=== PATIENT | male | born 1935 | race Caucasian/White ===

== ENCOUNTER 2024-07-02 14:07 | Inpatient (IN) | payer MEDICARE ==
[~2024-07-02] VITALS: Ht 177.8 cm; Wt 72.1 kg
[2024-07-02 14:07] VITALS: BP_SYST 154; PULSE 202; RESP 40; TEMP 97; O2SAT 99
[2024-07-02] MEDS ORDERED: AMIODARONE HCL 150 MG/3ML VIAL ONE (14:18)
[2024-07-02] MEDS: AMIODARONE HCL 150 MG/3ML VIAL IVP ONE (15:10)
[2024-07-02 15:19] LABS: HEMATOCRIT 45.9 % (36-54); HEMOGLOBIN 14.6 g/dL (14.0-18.0); MEAN CORPUSCULAR HEMOGLOBIN 29 pg (27-31); MEAN CORPUSCULAR HGB CONC 32 % (32-36); MEAN CORPUSCULAR VOLUME 92 fL (79.0-98.0); RED CELL DISTRIBUTION WIDTH 22.6 % (9.0-15.0); WHITE BLOOD COUNT (AUTO) 18.9 K/uL (4.8-10.8)
[2024-07-02 15:38] LABS: ALANINE AMINOTRANSFERASE 77 U/L (12-78); ALBUMIN 3.4 g/dL (3.4-4.8); ANION GAP 15 (5-15); ASPARTATE AMINOTRANSFERASE 32 U/L (10-37); CALCIUM 8.5 mg/dL (8.4-11.0); CARBON DIOXIDE 19 mmol/L (23-29); CHLORIDE 110 mmol/L (98-107); CREATININE 1.82 mg/dL (0.55-1.30); GLUCOSE 211 mg/dL (74-106); POTASSIUM 5.4 mmol/L (3.5-5.1); SODIUM SERUM 144 mmol/L (136-145); TOTAL BILIRUBIN 0.7 mg/dL (0.0-1.0); UREA NITROGEN, BLOOD 39 mg/dL (8-21)
[2024-07-02 15:40] LABS: BILIRUBIN,DIRECT 0.2 mg/dL (0.0-0.3)
[2024-07-02 15:45] LABS: PLATELET COUNT (AUTO) 35 K/uL (130-430)
[2024-07-02] MEDS: AMIODARONE HCL 150 MG in D5W 97 ML IV ONE (15:59)
[2024-07-02 16:12] LABS: BAND % (MANUAL) 13 % (0-6); BASOPHILS % (MANUAL) 0 % (0-2); EOSINOPHILS % (MANUAL) 0 % (0-7); LYMPHOCYTES % (MANUAL) 13 % (20-46); METAMYELOCYTES % 5 % (0-0); MONOCYTES % (MANUAL) 3 % (0-11); PLATELET ESTIMATE DECREASED (ADEQUATE)
[2024-07-02 16:13] LABS: ANISOCYTOSIS 2+; OVALOCYTES MODERATE; TEAR DROP CELLS MODERATE
[2024-07-02] MEDS ORDERED: LevALBUTEROL HCL 1.25 MG/0.5 ML *CONC.* VIAL.NEB (XOPENEX CONC.) INH PRN (17:00)
[2024-07-02] MEDS ORDERED: ONDANSETRON HCL 4 MG/2 ML VIAL IVP PRN ×2 (17:00→20:15)
[2024-07-02] MEDS ORDERED: IPRATROPIUM BROM 0.5 MG/2.5 ML VIAL.NEB (ATROVENT) INH PRN (17:00)
[2024-07-02] MEDS: AMIODARONE HCL 450 MG in D5W 241 ML IV ONE (17:28)
[2024-07-02 18:24] LABS: INR 1.2 (0.80-1.20); PROTHROMBIN TIME 12.5 SECS (9.5-12.5)
[2024-07-02] MEDS ORDERED: VANCOMYCIN HCL 1,500 MG in NS 250 ML IV SCH (18:30)
[2024-07-02] MEDS: NACL 0.9% 1,000 ML IV SCH (19:46)
[2024-07-02] MEDS ORDERED: HYDROcodone/ACETAMIN 5-325 MG TAB (NORCO/ VICODIN) PO PRN (20:15)
[2024-07-02] MEDS ORDERED: ACETAMINOPHEN 325 MG TABLET PO PRN (20:15)
[2024-07-02] MEDS ORDERED: hydrALAZINE HCL 20 MG/ML VIAL IVP PRN (20:15)
[2024-07-02] MEDS ORDERED: NITROGLYCERIN 0.4 MG TAB.SUBL SL PRN (20:15)
[2024-07-02] MEDS ORDERED: MORPHINE 2 MG/ML INJ. SYRINGE IVP PRN (20:15)
[2024-07-02] MEDS ORDERED: NALOXONE HCL 0.4 MG/ML AMP (NARCAN) IVP PRN ×2 (20:15)
[2024-07-02] MEDS: VANCOMYCIN HCL 1 GM/NS PREMIX 250 ML IV ONE (20:22)
[2024-07-02] MEDS ORDERED: VANCOMYCIN HCL 1000 MG/VIAL IV ONE (20:22)
[2024-07-02] MEDS: SODIUM POLYSTYRENE SULFONATE 15 GM/60 ML UDBTL PO ONE (20:28)
[2024-07-02] MEDS: ZOLPIDEM TARTRATE 5 MG TABLET PO ONE ×2 (20:28→20:44)
[2024-07-02 20:43] VITALS: BP_SYST 130; PULSE 115; O2SAT 96
[2024-07-02] MEDS ORDERED: PIPERACILLIN/TAZO 4.5 GM in NS 100 ML IV SCH (22:00)
[2024-07-03] VITALS (15 sets, daily range): BP systolic 115–143; PULSE 106–114; RESP 18–22; TEMP 98–98.1; O2SAT 93–98
[2024-07-03] MEDS ORDERED: PIPERACILLIN/TAZOBACTAM 2.25 GM VIAL IV ONE ×2 (00:14→06:14)
[2024-07-03] MEDS: PIPERACILLIN/TAZOBACTAM 2.25 GM in NS 50 ML IV SCH (00:15)
[2024-07-03] MEDS: DIPHENHYDRAMINE INJ 50 MG/ML VIAL IVP ONE (00:21)
[2024-07-03 08:53] LABS: ALANINE AMINOTRANSFERASE 105 U/L (12-78); ALBUMIN 2.7 g/dL (3.4-4.8); ANION GAP 7 (5-15); ASPARTATE AMINOTRANSFERASE 29 U/L (10-37); CARBON DIOXIDE 22 mmol/L (23-29); CHLORIDE 114 mmol/L (98-107); CREATININE 1.41 mg/dL (0.55-1.30); GLUCOSE 75 mg/dL (74-106); LACTATE DEHYDROGENASE 186 U/L (85-227); POTASSIUM 3.7 mmol/L (3.5-5.1); SODIUM SERUM 143 mmol/L (136-145); TOTAL BILIRUBIN 0.8 mg/dL (0.0-1.0); TOTAL PROTEIN, SERUM 4.6 g/dL (6.4-8.3); UREA NITROGEN, BLOOD 35 mg/dL (8-21)
[2024-07-03] MEDS ORDERED: TIOTROPIUM BROMIDE 18 mcg/INHALATION (CAPSULE) INH SCH (09:00)
[2024-07-03] MEDS: SODIUM ZIRCONIUM CYCLOSILICATE 10 GM POWD.PACK PO SCH (09:00)
[2024-07-03 09:19] LABS: CALCIUM 6.7 mg/dL (8.4-11.0)
[2024-07-03] MEDS: IPRATROPIUM BROM 0.5 MG/2.5 ML VIAL.NEB (ATROVENT) INH SCH (11:16)
[2024-07-03] MEDS: FUROSEMIDE 40 MG/4 ML VIAL IV SCH (12:23)
[2024-07-03] MEDS: PANTOPRAZOLE SODIUM 40 MG TAB PO SCH (12:24)
[2024-07-03] MEDS: predniSONE 20 MG TABLET PO SCH (12:25)
[2024-07-03] MEDS: METOPROLOL TARTRATE 25 MG TABLET PO SCH (12:25)
[2024-07-03] MEDS: AMIODARONE HCL 200 MG TABLET PO SCH (12:26)
[2024-07-03] MEDS: SODIUM PHOSPHATE,MONO-DIBASIC 133 ML ENEMA RC ONE ×3 (14:45→15:15)
[2024-07-03 17:34] LABS: ERYTHROCYTE SEDIMENTATION RATE < 1 MM/HR (0-15)
[2024-07-03 17:43] LABS: BASOPHILS % (AUTO) 0.1 % (0.0-2.0); EOSINOPHILS % (AUTO) 0.1 % (0.0-4.0); HEMATOCRIT 39.4 % (36-54); HEMOGLOBIN 13.2 g/dL (14.0-18.0); LYMPHOCYTES # (AUTO) 0.8 K/uL (1.0-5.5); LYMPHOCYTES % (AUTO) 5.7 % (20.5-51.5); MEAN CORPUSCULAR HEMOGLOBIN 29 pg (27-31); MEAN CORPUSCULAR HGB CONC 33 % (32-36); MEAN CORPUSCULAR VOLUME 88 fL (79.0-98.0); MONOCYTES # (AUTO) 1.5 K/uL (0.0-1.0); MONOCYTES % (AUTO) 10.5 % (1.7-9.3); NEUTROPHILS # (AUTO) 11.9 K/uL (1.8-7.7); NEUTROPHILS % (AUTO) 83.6 % (40.0-70.0); RETICULOCYTE COUNT 3.6 % (0.5-1.5); WHITE BLOOD COUNT (AUTO) 14.2 K/uL (4.8-10.8)
[2024-07-03 18:13] LABS: PLATELET COUNT (AUTO) 30 K/uL (130-430)
[2024-07-03 19:51] LABS: CHOLESTEROL 73 mg/dL (<200); HDL CHOLESTEROL 38 mg/dL (>45); TRIGLYCERIDES 84 mg/dL (30-150)
[2024-07-03] MEDS ORDERED: DIPHENHYDRAMINE HCL 50 MG CAPSULE PO PRN (20:15)
[2024-07-03 20:55] LABS: TOTAL IRON BIND. CAPACITY 233 ug/dL (250-450)
[2024-07-03] MEDS: QUEtiapine FUMARATE 25 MG TABLET PO SCH (21:10)
[2024-07-03] MEDS: VANCOMYCIN HCL 1,000 MG in NS 250 ML IV SCH (21:11)
[2024-07-03] MEDS: MELATONIN 5 MG TABLET PO ONE ×2 (21:57→22:01)
[2024-07-03] MEDS: DIPHENHYDRAMINE HCL 25 MG CAPSULE ONE (22:00)
[2024-07-03] MEDS: DIPHENHYDRAMINE HCL 50 MG CAPSULE PO PRN (22:02)
[2024-07-04] VITALS (12 sets, daily range): BP systolic 112–138; PULSE 87–108; RESP 14–23; TEMP 97.9–98.8; O2SAT 10–100
[2024-07-04] MEDS: methylPREDNISolone SOD SUCC/PF 62.5 MG/ML VIAL IVP ONE (10:04)
[2024-07-04] MEDS: methylPREDNISolone SOD SUCC/PF 62.5 MG/ML VIAL IVP SCH (11:34)
[2024-07-04] MEDS: CYANOCOBALAMIN 1000 MCG/ML VIAL IM ONE (15:48)
[2024-07-04 18:48] LABS: ALANINE AMINOTRANSFERASE 88 U/L (12-78); ANION GAP 8 (5-15); CALCIUM 7.5 mg/dL (8.4-11.0); CARBON DIOXIDE 23 mmol/L (23-29); CHLORIDE 108 mmol/L (98-107); CREATININE 1.94 mg/dL (0.55-1.30); GLUCOSE 192 mg/dL (74-106); POTASSIUM 4.6 mmol/L (3.5-5.1); SODIUM SERUM 139 mmol/L (136-145); TOTAL BILIRUBIN 0.8 mg/dL (0.0-1.0); TOTAL PROTEIN, SERUM 5.4 g/dL (6.4-8.3); UREA NITROGEN, BLOOD 44 mg/dL (8-21)
[2024-07-04 19:29] LABS: HEMATOCRIT 39.6 % (36-54); HEMOGLOBIN 13.3 g/dL (14.0-18.0); MEAN CORPUSCULAR HEMOGLOBIN 30 pg (27-31); MEAN CORPUSCULAR HGB CONC 33 % (32-36); MEAN CORPUSCULAR VOLUME 89 fL (79.0-98.0); RED BLOOD CELL COUNT(AUTO) 4.46 MIL/uL (4.2-6.2); RED CELL DISTRIBUTION WIDTH 21.7 % (9.0-15.0); WHITE BLOOD COUNT (AUTO) 12.1 K/uL (4.8-10.8)
[2024-07-04 19:37] LABS: ASPARTATE AMINOTRANSFERASE 13 U/L (10-37)
[2024-07-04 19:44] LABS: PLATELET COUNT (AUTO) 20 K/uL (130-430)
[2024-07-04] MEDS: DIPHENHYDRAMINE HCL 25 MG CAPSULE ONE (21:31)
[2024-07-04 22:04] LABS: BAND % (MANUAL) 14 % (0-6); BASOPHILS % (MANUAL) 0 % (0-2); EOSINOPHILS % (MANUAL) 0 % (0-7); LYMPHOCYTES % (MANUAL) 8 % (20-46); METAMYELOCYTES % 5 % (0-0); MONOCYTES % (MANUAL) 2 % (0-11); PLATELET ESTIMATE DECREASED (ADEQUATE)
[2024-07-04 22:05] LABS: ANISOCYTOSIS 3+; OVALOCYTES MODERATE; TEAR DROP CELLS MODERATE
[2024-07-05] MEDS ORDERED: MELATONIN 5 MG TABLET PO ONE (21:00)
== END 2024-07-04 23:00 | disposition short-term general hospital (02) | DRG 871 ==
LOC: SED 14:07 → EDBD 14:07 → SIC 16:55
PROVIDERS: ADMIT Internal Medicine; ATTEND Internal Medicine
PROC: 5A09357 Assistance with Respiratory Ventilation, Less than 24 Consecutive Hours, Continuous Positive Airway Pressure (ICD-10-PCS; principal; 2024-07-02)
DX: A41.9 Sepsis, unspecified organism (principal); J18.9 Pneumonia, unspecified organism; J96.01 Acute respiratory failure with hypoxia; N17.9 Acute kidney failure, unspecified; I48.92 Unspecified atrial flutter; I13.0 Hypertensive heart and chronic kidney disease with heart failure and stage 1 through stage 4 chronic kidney disease, or unspecified chronic kidney disease; J44.0 Chronic obstructive pulmonary disease with (acute) lower respiratory infection; I50.40 Unspecified combined systolic (congestive) and diastolic (congestive) heart failure; R65.20 Severe sepsis without septic shock; I25.10 Atherosclerotic heart disease of native coronary artery without angina pectoris; D69.6 Thrombocytopenia, unspecified; E87.5 Hyperkalemia; M51.36 Other intervertebral disc degeneration, lumbar region; K40.90 Unilateral inguinal hernia, without obstruction or gangrene, not specified as recurrent; K57.10 Diverticulosis of small intestine without perforation or abscess without bleeding; K76.89 Other specified diseases of liver; N28.1 Cyst of kidney, acquired; Z20.822 Contact with and (suspected) exposure to COVID-19; N18.2 Chronic kidney disease, stage 2 (mild); E78.5 Hyperlipidemia, unspecified; E83.41 Hypermagnesemia; R73.03 Prediabetes; F03.A0 Unspecified dementia, mild, without behavioral disturbance, psychotic disturbance, mood disturbance, and anxiety; Z95.1 Presence of aortocoronary bypass graft; Z87.891 Personal history of nicotine dependence; W01.0XXA Fall on same level from slipping, tripping and stumbling without subsequent striking against object, initial encounter
CPT/HCPCS: 36415; 70450-TC; 71045; 71250-TC; 76700; 80048; 80053; 80061; 80076; 82533; 82948; 83037; 83540; 83550; 83605; 83615; 83735; 83880; 84484; 85007; 85025; 85027; 85044; 85379; 85384; 85610; 85651; 85730; 87040; 87081; 87086; 93005; 93306; 94640; 94660; 99291; 99292; J0282; J1200; J1940; J2543; J2930; J3370; J3420; J7050; J7060; J7512; Q0163